=== PATIENT | male | born 1980 | race Caucasian/White ===

== ENCOUNTER 2019-09-11 21:33 | Emergency (ER) | payer BC ==
[~2019-09-11] VITALS: Ht 187.9 cm; Wt 104.3 kg
[~2019-09-11 21:33] MED LIST: CORTISPORIN SUS10 ML OT; DAYPRO600 M1 PO; FLEXERIL5 MG PO; MOTRIN800 MG PO; PEN-VEE K500 MG PO; ROBAXIN750 MG PO; VICODIN 500 MG-1 TAB PO; ZITHROMAX Z PA250 MG PO
[2019-09-11 21:40] VITALS: BP 130/85
[2019-09-11] MEDS ORDERED: Percocet 325 MG1 TAB PO (22:53)
== END 2019-09-11 23:20 | disposition home or self-care (01) ==
LOC: ED 21:33
DX: S22.41XA Multiple fractures of ribs, right side, initial encounter for closed fracture (principal); V86.59XA Driver of other special all-terrain or other off-road motor vehicle injured in nontraffic accident, initial encounter; Y93.89 Activity, other specified; Y92.89 Other specified places as the place of occurrence of the external cause; Y99.8 Other external cause status

== ENCOUNTER → 2024-10-19 | Outpatient (CLI) | payer BC ==
[~2024-10-19] MED LIST changes: +Percocet 325 MG1 TAB PO
[2024-10-19 12:51] LABS: BASO # 0.1 10*3/uL (0.0-0.1); BASO % 1.1 % (0.0-1.0); EOS # 0.1 10*3/uL (0.0-0.4); EOS % 2.4 % (1.0-4.0); MEAN CELL VOLUME 89.4 fl (80.0-94.0); MEAN CORPUSCULAR HGB 29.8 pg (27.0-31.0); MEAN PLATELET VOLUME 10.0 fl (9.6-12.3); MONO # 0.4 10*3/uL (0.1-1.0); MONO % 7.6 % (3.0-9.0); NEUT # 2.9 10*3/uL (2.3-7.9); NEUT % 54.2 % (47.0-73.0); NUCLEATED RED BLOOD CELL 0.0 % (0.0-0.0); NUCLEATED RED BLOOD CELL 0.0 10*3/uL (0.0-0.0); PLATELET COUNT AUTOMATED 218 10*3/uL (130-400); RED CELL DISTRI WIDTH 12.7 % (0-14.5)
[2024-10-19 13:45] LABS: BUN 17 mg/dl (9-23); LDL CHOLESTEROL 140 mg/dL (9-159); SGPT/ALT 31 U/L (5-49); THYROXINE (T4) TOTAL 7.3 ug/dl (4.5-10.9)
== END | disposition home or self-care (01) ==
LOC: LAB 11:40
PROVIDERS: ATTEND Family Medicine
DX: R10.9 Unspecified abdominal pain (principal); R30.0 Dysuria; R53.83 Other fatigue; R80.9 Proteinuria, unspecified